=== PATIENT | female | born 1980 | race Caucasian/White ===

== ENCOUNTER 2017-05-04 18:28 | Emergency (ER) | payer SELFPAY ==
[2017-05-04 19:02] VITALS: PULSE 73; O2SAT 100
[2017-05-04 20:38] LABS: SQUAMOUS EPITHIAL 4 /hpf (0-5); URINE BACTERIA OCC (<OCC); URINE BILIRUBIN NEGATIVE (NEGATIVE); URINE BLOOD 2+ (NEGATIVE); URINE CLARITY Clear (Clear); URINE COLOR Yellow (YELLOW); URINE GLUCOSE (UA) NORMAL (Normal); URINE LEUKOCYTE ESTERASE NEG Leu/uL (Negative); URINE NITRATE NEGATIVE (NEGATIVE); URINE PROTEIN 2+ mg/dL (NEGATIVE); URINE UROBILINOGEN NORMAL mg/dL (0.2-1.0)
[2017-05-04] MEDS ORDERED: Sodium Chloride 0.9% 1,000 ML IV ONE ×2 (20:39→21:15)
[2017-05-04] MEDS ORDERED: Sodium Chloride 0.9% 1,000 ML ONE (20:51)
--- NOTE | 2017-05-04 21:07 | C.PDOC ---
History Of Present Illness 36 year old female presents to the ED c/o epigastric pain that she describes as burning that comes and goes and is not related to food or change in position. Patient states pain is associated with diarrhea, loose water bowel movements everyday. She has mild intermittent reflux associated with discomfort in her chest. Patient reports she arrived from [facility] 3 weeks ago, and 3 days after arrival she developed the symptoms. Patient reports she had similar pain while in [place] and was treated with Nexium which did help her pain. She tried the OTC Nexium here with no improvement. Patient denies fever, chills, nausea vomit, back pain. She has no cough. Time Seen by Provider: 05/04/17 20:31 Chief Complaint (Nursing): Chest Pain History Per: Patient History/Exam Limitations: no limitations Onset/Duration Of Symptoms: Days Current Symptoms Are (Timing): Still Present Severity: None Quality: Burning Modifying Factors: None Exacerbating Factors: None Alleviating Factors: None Recent travel outside of the [place]: Yes (arrived from [facility] 3 weeks ago) Additional History Per: Patient Past Medical History Reviewed: Historical Data, Nursing Documentation, Vital Signs Vital Signs: Last Vital Signs Temp 98.7 F 05/04/17 19:00 Pulse 73 05/04/17 19:00 Resp 20 05/04/17 19:00 BP 136/83 05/04/17 19:00 Pulse Ox 100 05/04/17 22:01 - Medical History PMH: Bipolar Disorder Surgical History: No Surg Hx Family History: States: Unknown Family Hx - Social History Hx Alcohol Use: No Hx Substance Use: No - Immunization History Hx Tetanus Toxoid Vaccination: No Hx Influenza Vaccination: Yes Hx Pneumococcal Vaccination: No Review Of Systems Constitutional: Negative for: Fever, Chills Cardiovascular: Negative for: Chest Pain Respiratory: Negative for: Cough, Shortness of Breath Gastrointestinal: Positive for: Abdominal Pain, Diarrhea. Negative for: Nausea , Vomiting Genitourinary: Negative for: Dysuria, Hematuria Skin: Negative for: Rash Neurological: Negative for: Weakness, Numbness Physical Exam - Physical Exam Appears: Non-toxic, No Acute Distress Skin: Normal Color, Warm, Dry Head: Atraumatic, Normacephalic Eye(s): bilateral: Normal Inspection Nose: No Discharge, No Deformity Oral Mucosa: Moist Neck: Normal ROM, Supple Chest: Symmetrical Cardiovascular: Rhythm Regular, No Murmur Respiratory: Normal Breath Sounds, No Rales, No Rhonchi, No Wheezing Gastrointestinal/Abdominal: Soft, No Tenderness, No Guarding, No Rebound Extremity: Normal ROM, No Pedal Edema, No Calf Tenderness, No Deformity, No Swelling Neurological/Psych: Oriented x3, Normal Speech, Normal Cognition Gait: Steady ED Course And Treatment - Laboratory Results Result Diagrams: 05/04/17 21:06 05/04/17 21:06 ECG: Interpreted By Me ECG Rhythm: Sinus Rhythm (with short SC interval) ECG Interpretation: No Acute Changes O2 Sat by Pulse Oximetry: 100 (On RA) Pulse Ox Interpretation: Normal - Radiology CXR: Interpreted by Me CXR Interpretation: Yes: No Acute Disease Reevaluation Time: 22:29 Reassessment Condition: Improved (Patient remains comfortable. No vomiting or diarrhea in ED.) Medical Decision Making Medical Decision Making: Impression : abdominal pain Plan: * EKG * Labs * Pepcid 20 mg IVP * Protonix 40 mg IVP * IV fluids * UA Disposition Counseled Patient/Family Regarding: Studies Performed, Diagnosis, Need For Followup, Rx Given - Disposition Referrals: [facility] [Outside] Disposition: HOME/ ROUTINE Disposition Time: 22:29 Condition: STABLE Additional Instructions: Start with clear liquids and advance to a bland diet as tolerated. Prescriptions: Pantoprazole Sodium [Protonix] 40 mg PO DAILY #14 ect Instructions: Gastroenteritis (ED) Forms: [facility] (Thai), School Excuse - Clinical Impression Clinical Impression: Gastroenteritis and colitis, viral - Scribe Statement The provider has reviewed the documentation as recorded by the Scribkari Coley All medical record entries made by the Scribe were at my direction and personally dictated by me. I have reviewed the chart and agree that the record accurately reflects my personal performance of the history, physical exam, medical decision making, and the department course for this patient. I have also personally directed, reviewed, and agree with the discharge instructions and disposition.
[2017-05-04 21:18] LABS: BASO # 0.1 K/uL (0.0-0.2); BASO % 1.2 % (0.0-2.0); EOS % 0.1 % (0.0-4.0); HEMOGLOBIN 12.3 g/dL (11.0-16.0); LYMPH # 1.9 K/uL (1.0-4.3); LYMPH % 45.7 % (20.0-40.0); MEAN CELL VOLUME 87.6 fL (81.0-99.0); MEAN CORPUSCULAR HEMOGLOBIN 29.4 pg (27.0-31.0); MEAN CORPUSCULAR HGB CONC 33.5 g/dL (33.0-37.0); MEAN PLATELET VOLUME 10.3 fL (7.2-11.7); MONO # 0.6 K/uL (0.0-0.8); MONO % 13.6 % (0.0-10.0); NEUT # 1.6 K/uL (1.8-7.0); NEUT % 39.4 % (50.0-75.0); NRBC % 0.2 % (0.0-2.0); RBC 4.2 Mil/uL (3.80-5.20); RED CELL DISTRIBUTION WIDTH 13.8 % (11.5-14.5); WHITE BLOOD COUNT 4.2 K/uL (4.8-10.8)
[2017-05-04 21:32] LABS: ALBUMIN 3.7 g/dL (3.5-5.0); ALT/SGPT 16 U/L (9-52); AST/SGOT 20 U/L (14-36); BLOOD UREA NITROGEN 13 mg/dL (7-17); CALCIUM 8.8 mg/dl (8.6-10.4); GFR AFRICAN-AMERICAN > 60; GFR NON-AFRICAN AMERICAN > 60; LIPASE 19 U/L (23-300)
[2017-05-04 22:55] VITALS: BP 119/82; RESP 18; TEMP 98.1
--- NOTE | 2017-05-05 09:12 | RAD ---
Chest x-ray two views History: Abdominal pain. Comparison: None available. Findings No focal infiltrate or effusion. Bibasilar breast and nipple shadows. Impression: No focal infiltrate or effusion.
--- NOTE | 2017-05-05 12:46 | CARD ---
APPROVED REPORT EKG Measurement Heart [id number] <Conclusion> Sinus rhythm with short KS Otherwise normal ECG
== END 2017-05-04 23:00 | disposition home or self-care (01) ==
LOC: C.ER 18:28
DX: A08.4 Viral intestinal infection, unspecified (principal)
CPT/HCPCS: 71046; 80053; 81001; 83690; 84703; 85025; 93005; 96361; 96374; 96375; 99284; C9113; J7040